=== PATIENT | female | born 1990 | race Caucasian/White ===

== ENCOUNTER 2016-07-30 06:53 | Day surgery (SDC) | payer SELFPAY ==
[2016-07-28 12:10] VITALS: BMI 23.4
[2016-07-30] MEDS ORDERED: ceFAZolin SODIUM 1 GM VIAL ONE (07:08)
[2016-07-30] MEDS ORDERED: GENTAMICIN SO4 80 MG/2 ML VIAL ONE (07:08)
[2016-07-30] MEDS ORDERED: BUPIVACAINE HCL/PF 0.5% (5MG/ML) 10 ML VIAL ONE (07:09)
[2016-07-30] MEDS ORDERED: PROPOFOL 20 ML ONE ×4 (07:26→09:47)
[2016-07-30] MEDS ORDERED: MIDAZOLAM HCL 2 MG/2 ML SINGLE DOSE VIAL ONE (07:26)
[2016-07-30] MEDS ORDERED: LIDOCAINE 1%-EPI 1:100,000 30 ML MDV IJ ONE (09:46)
[2016-07-30] MEDS ORDERED: GUM MASTIC/STORAX/MSAL/ALCOHOL 1 DRP DROPSBTL MC ONE (10:09)
--- NOTE | 2016-07-30 10:38 | OP ---
Operative Note - Note: Operative Date: 07/30/16 Pre-Operative Diagnosis: Unsatisfactory apperance of breasts Operation: Exchange of breast implant with insertion of mesh and implant and left breast mastopexy Implants: silicone breast implants, mesh Post-Operative Diagnosis: Same as Pre-op Surgeon: Alonso Almaraz Child Welfare Worker: Georgina Alanis Anesthesia: General Specimens Removed: breast implants Operative Report Dictated: Yes
[2016-07-30] MEDS ORDERED: ONDANSETRON 4 MG/2 ML VIAL ONE (11:07)
[2016-07-30] MEDS ORDERED: ONDANSETRON 4 MG/2 ML VIAL IVPUSH PRN (12:10)
[2016-07-30] MEDS ORDERED: oxyCODONE HCL 5 MG TABLET PO PRN ×2 (12:10)
[2016-07-30] MEDS ORDERED: oxyCODONE HCL 5 MG TABLET ONE (12:11)
[2016-07-30] MEDS ORDERED: LACTATED RINGERS SOLUTION 1,000 ML IV SCH (12:15)
[2016-07-30 16:02] VITALS: BP 114/61; PULSE 61; TEMP 98
--- NOTE | 2016-07-30 19:55 | OP ---
DATE OF OPERATION: 07/30/2016 SURGEON: Morenita Almaraz MD [facility] SURGEON: CYNTHIA Love PREOPERATIVE DIAGNOSIS: Bilateral capsular contracture, status post augmentation mastoplasty. POSTOPERATIVE DIAGNOSIS: Bilateral capsular contracture, status post augmentation mastoplasty. OPERATIVE PROCEDURE: 1. Bilateral capsulotomy and removal of breast implants. 2. Capsulorrhaphy, left breast. 3. Bilateral placement of Galaflex mesh for support. 4. Left breast mastopexy. OPERATIVE INDICATION: The patient is a 25-year-old white female who underwent breast augmentation in 2002 by another surgeon and presented with lateralization of her implants, evidence of capsular contracture, and snoopy-deformity of the breast itself, with the breast tissue hanging over the implant. The risks and benefits of surgical versus nonsurgical alternatives as well as the material complications were described to the patient on multiple occasions with multiple visits preoperatively. Patient agreed to the planned procedure. The patient was marked in the standing position preoperatively with an outline of the incisions and plan of the surgery. OPERATIVE PROCEDURE IN DETAIL: The patient was taken to the operating room, and after induction of general anesthesia in supine position, both arms were extended and padded. Venodyne boots were placed. The entire chest wall was painted with ChloraPrep solution over the entire extent, and attention was turned to draping. After placement of sterile drapes, 1% local lidocaine anesthesia with 1:100,000 epinephrine was injected into the long incisions in the inframammary fold area, which measured approximately 5 cm in length. These scars were actually excised in elliptical fashion. The right breast was attended to first. Incision was made down through skin, excising the scar, and down through the subcutaneous tissue down to the underlying implant. A large amount of scar was seen in the subdermal area and in the area of the previous scar. This was carried down through the scar down to the underlying capsule. The capsule on the right breast was then opened and the implant removed. A 350 mL Sientra style 106 implant was seen and this was sent for pathologic diagnosis. The wound was copiously irrigated with triple-antibiotic solution and the pocket had a capsulotomy performed circumferentially but more on the medial side. The pectoralis major muscle origin had not been taken down previously. This was cauterized using electrocautery with punctate areas and hemostasis was meticulously obtained. At this point the implant was chosen. A Sientra style 106 505-mL high-profile implant was placed into the right breast pocket. Excellent shape and contour was seen at this point on the right breast and the Galaflex mesh, which was soaked on the back table in sterile fashion in triple-antibiotic solution, was then brought into the field. This mesh was then attached after the pectoralis major muscle was released, as the implant had been and would continue to be in the subpectoral position. The pectoralis muscle was released from the overlying soft tissue in order to allow it to advance down and the soft tissue up, and the Galaflex was tacked into position using 2-0 PDS sutures in interrupted fashion along the medial border, superior border of the muscle, laterally and down through to mammary fold. Good shape and contour was seen. The wound was copiously irrigated with triple-antibiotic solution and 10 mL of 0.5% Marcaine was infiltrated into the wound itself. The same procedure was performed on the left side, excising the scar and carrying the incision down to the underlying capsule with removal of the left breast implant. This was a 380 mL Sientra 106 style implant. This was also sent for pathologic diagnosis. A similar capsulotomy was performed; however, this required more extensive medial dissection, as the muscular origin and insertions were preventing medialization of the implant. The lateral pocket also was large and too lateral, and after injection of this area with 1% local lidocaine anesthesia, a capsulorrhaphy was performed with number 2 Quill suture in 2-layered fashion on the gutter of the left breast capsule. After the capsulorrhaphy was performed, the implant was placed, a 535 mL 106 high-profile implant was placed into the left breast. The Galaflex mesh was also tacked in a similar position the opposite breast, into the fold, and to the muscle superiorly, and the soft tissue was released over the muscle itself and allowed to retract in a new position. The wounds were also copiously irrigated with antibiotic solution and Marcaine, and then the wound was closed in layers using 3-0 PDS suture on the deep tissue, and 4-0 in subcuticular fashion. The patient was placed into a sitting position. The left nipple-areolar complex showed extra skin and laxity, and a circumferential mastopexy with 2 cm margins were performed circumareolarly on the left breast. After de-epithelialization, multiple sutures were placed with 3-0 PDS suture on the deep tissue, and a V-Loc 3-0 placed into the dermis of the skin. Good shape and contour was seen at this point and all wounds were dressed with Mastisol, Steri-Strips, and a compressive dressing. She was awakened, extubated, and transferred to the recovery room in a Surgi-Bra and tolerated the procedure well. MORENITA ALMARAZ M.D. ADAN/[id number]
[2016-07-30] MEDS ORDERED: PATIENT'S OWN MEDICATION (NON-FORMULARY) (Dextroamphetamine/Amphetamine [Adderall 10 Mg Ta PO SCH (22:00)
[2016-07-31] MEDS ORDERED: SPIRONOLACTONE 25 MG TABLET (FP) PO SCH (10:00)
--- NOTE | 2016-08-03 12:52 | PATH ---
Surgical Pathology Report Patient Name: SAL MCWILLIAMS Med. Rec. #: [id number] /Age/Gender: 1990 (Age: 25) / F Account: [id number] Location: [facility] AMBULATORY Taken: 07/30/2016 Received: 07/31/2016 Reported: 08/03/2016 Physicians: Alonso Almaraz Specimen(s) Received BILATERAL BREAST IMPLANTS (EXPLANTS) Clinical History Cosmetic Final Diagnosis BILATERAL BREAST IMPLANTS, REMOVAL: IMPLANTS, DESCRIBED (GROSS EXAMINATION ONLY). Electronically Signed Kat Lozano M.D. Gross Description Received fresh labeled "bilateral breast implants," are 2 bello, rubbery breast implant averaging 12.5 cm in diameter and 3.5 cm in depth. No soft tissue is present. No sections are submitted, gross only. /07/31/201607/31/2016
== END 2016-07-30 13:20 | disposition home or self-care (01) ==
LOC: FASU 06:53
PROVIDERS: ATTEND Plastic Surgery
PROC: 0HQV0ZZ Repair Bilateral Breast, Open Approach (ICD-10-PCS; 2016-07-30)
PROC: 0HUV0JZ Supplement Bilateral Breast with Synthetic Substitute, Open Approach (ICD-10-PCS; 2016-07-30)
PROC: 0HPU0JZ Removal of Synthetic Substitute from Left Breast, Open Approach (ICD-10-PCS; 2016-07-30)
PROC: 0HPT0JZ Removal of Synthetic Substitute from Right Breast, Open Approach (ICD-10-PCS; 2016-07-30)
PROC: 0HRV0JZ Replacement of Bilateral Breast with Synthetic Substitute, Open Approach (ICD-10-PCS; 2016-07-30)
PROC: 0HNV0ZZ Release Bilateral Breast, Open Approach (ICD-10-PCS; principal; 2016-07-30 08:20)
DX: T85.44XA Capsular contracture of breast implant, initial encounter (principal); Y83.9 Surgical procedure, unspecified as the cause of abnormal reaction of the patient, or of later complication, without mention of misadventure at the time of the procedure; Y92.9 Unspecified place or not applicable
CPT/HCPCS: 84703; 88300-TC; 94760